=== PATIENT | female | born 1960 ===

== ENCOUNTER 2021-01-13 22:11 | Emergency (ER) | payer MEDICARE, OTHER ==
[~2021-01-13] VITALS: Ht 152.4 cm; Wt 68.7 kg
[2021-01-14] MEDS ORDERED: LIDOcaine 5% patch TP ONE (00:15)
[2021-01-14] MEDS ORDERED: aspirin 325mg tablet PO ONE (00:15)
[2021-01-14 00:58] VITALS: BP 125/87
== END 2021-01-14 00:59 | disposition home or self-care (01) ==
LOC: VAS 22:13
DX: M54.5 Low back pain (principal); G89.29 Other chronic pain; Z59.0 Homelessness
CPT/HCPCS: 99284